=== PATIENT | male | born 1980 | race Caucasian/White ===

== ENCOUNTER → 2017-01-25 | Outpatient (CLI) | payer OTHER | END | disposition home or self-care (01) | LOC: PTH.S 18:16 | DX: G47.33 Obstructive sleep apnea (adult) (pediatric) (principal) ==

== ENCOUNTER → 2017-02-03 | Outpatient (CLI) | payer SELFPAY ==
--- NOTE | 2017-02-18 16:10 | SS ---
ADMIT: 02/03/2017 RM/LOC: [facility] MR#: [id number] [facility] [address] [place], [place] [id number] ANGELIKARILEY Karla [address] [place] [address] Sleep Study SEX: M AGE: 36 : 1980 STUDY DATE: 02/03/2017 CLINICAL HISTORY: This is a 36-year-old male, body mass index of 32.8, 72 inches tall, 242 pounds, who has symptoms of snoring, witnessed apneas, daytime sleepiness with [place] Sleepiness Scale of 15, in the sleep lab for evaluation of obstructive sleep apnea. TECHNICAL DESCRIPTION: Split night polysomnogram was performed on night of 02/03/2017, attended by a trained research food technologist. DIAGNOSTIC POLYSOMNOGRAM FINDINGS: SLEEP: Total time in bed is 290.5 minutes, total sleep time 255 minutes, sleep efficiency 87.8%. 50.4% of time was spent in stage II sleep, 21.7% of time was spent in stage REM. BREATHING: [id number] obstructive sleep apnea with an apnea-hypopnea index of 28. During the study, there were 12 obstructive apneas and 107 obstructive hypopneas noted. OXYGEN SATURATION: Mean sleeping oxygen is 90%, lowest oxygen sat 70% on REM sleep. 8% hours spent in saturating 80% to 89%. CARDIAC: Average heart rate is 85 beats per minute. MOVEMENTS/POSITION: During the study, the patient slept in the supine lateral position with no significant leg movements. CPAP TITRATION FINDINGS: TITRATION DESCRIPTION: The patient was titrated from 6 cm of CPAP to 12 cm of CPAP. A ResMed AirFit and 20 medium nasal mask was used as interface. SLEEP: Total time in bed is 258 minutes, total sleep time 193 minutes, sleep efficiency 74.8%. 59.9% hours was spent in stage II sleep, 16.9% hours spent in stage REM. BREATHING: Excellent resolution of obstructive sleep apnea was seen on CPAP of 12 cm. The patient was seen in REM sleep in lateral position at the ending pressure. OXYGEN SATURATION: Mean sleeping oxygen saturation is 95%. ADMIT: 02/03/2017 RM/LOC: [facility] MR#: [id number] [facility] [address] [place] [id number] RILEY CARNEY [address] [facility] [address] [place] [address] Sleep Study SEX: M AGE: 36 : 1980 CARDIAC: Average heart rate 74 beats per minute. MOVEMENTS/POSITION: During the study, the patient slept in the supine lateral position with no significant leg movements. IMPRESSION AND PLAN: Severe obstructive sleep apnea with apnea-hypopnea index of 28. Recommend using CPAP of 12 cm with mask as mentioned above. Recommend losing weight, avoiding sedatives or alcohol. Refrain from driving if excessively sleepy. Clinical correlation needed. CPAP compliance followup is recommended. Vinnie Colby MD/ bud JOB #: [id number] CC: Maria C Malcolm MD Resident, Attending Physician Maria C Malcolm MD Resident, Family Physician Maria C Malcolm MD Resident
== END | disposition home or self-care (01) ==
LOC: RESC 19:55
DX: G47.33 Obstructive sleep apnea (adult) (pediatric) (principal)